=== PATIENT | female | born 1980 | race Two or more races ===

== ENCOUNTER 2020-04-10 12:28 | Emergency (ER) | payer BC ==
[2020-04-10 12:31] VITALS: BP 131/80
[2020-04-10] MEDS ORDERED: LORAZEPAM 0.5MG TABLET PO ONE (13:00)
== END 2020-04-10 13:10 | disposition home or self-care (01) ==
LOC: ER 12:48
DX: R06.00 Dyspnea, unspecified (principal); F41.9 Anxiety disorder, unspecified; K21.9 Gastro-esophageal reflux disease without esophagitis; R00.2 Palpitations
CPT/HCPCS: 93005; 99283